=== PATIENT | female | born 1960 | race Caucasian/White ===

== ENCOUNTER → 2017-01-09 | Outpatient (CLI) | payer OTHER ==
[~2017-01-09] VITALS: Ht 154.9 cm; Wt 68.6 kg
[~2017-01-09] MED LIST: ACYC200C66 PO; CHLORHEXIDINE GLUCONATE 2 % 1 PACK (2 CLOTHS) TOPICAL PRN; DULO1CAP3 PO; INSULIN HUMAN REGULAR 1,000 UNITS/10 ML VIAL SQ PRN; LACTATED RINGER'S 1000 ML IV PRN; METOPROLOL TARTRATE 25 MG TAB PO PRN; MIDAZOLAM HCL 2 MG/2 ML VIAL IV ONE; MS C30TA5 PO; OXYC1CAP PO; POVIDONE IODINE 5% (ANTISEPSIS KIT) 4 APPLICATIONS EACH NARE PRN; PROPOFOL 200 MG/20 ML AMP IV ONE; RANI150T PO; SODIUM CHLORID 0.9% 500 ML IV PRN
--- NOTE | 2017-01-09 12:04 | PD.PROCEDR ---
GI Procedure PROCEDURE PERFORMED Endoscopic ultrasound INDICATION FOR PROCEDURE Dilated common bile duct PROCEDURE: The procedure, risks and benefits were discussed with Ms. Cheema and informed consent was obtained. Anesthesia sedated her with Diprivan. She was placed in the left lateral decubitus position. Endoscopic ultrasound: The Pentax videoscope was introduced through the oropharynx and advanced to the second portion of the duodenum under direct visualization. FINDINGS: The pancreatic parenchyma appeared to be unremarkable from head to tail Pancreatic duct was within normal limits it measured 1.1 mm Bile duct was also within normal limits it was not noted to be dilated and is appropriate for her age with no filling defects in the bile duct was 4-5mm Normal ampulla No lymphadenopathy ESTIMATED BLOOD LOSS: None SPECIMENS REMOVED: None COMPLICATIONS: None IMPRESSION: Normal endoscopic ultrasound PLAN: Follow-up in clinic in 3 weeks Semaj Hansen MD Jan 09, 2017 12:04
[2017-01-09 12:29] VITALS: BP 95/69; PULSE 62; RESP 16; TEMP 97.1; O2SAT 97
--- NOTE | 2017-01-09 17:02 | EKG ---
Date Performed: 01/09/2017 Time Performed: 09:28:20 PTAGE: 56 years EKG: Sinus rhythm NORMAL ECG NO PREVIOUS TRACING DOCTOR: Gertrude Sanders Interpretating Date/Time 01/09/2017 17:01:40
== END ==
LOC: HEND 08:46
PROVIDERS: ATTEND Internal Medicine Gastroenterology
DX: K83.8 Other specified diseases of biliary tract (principal); Z01.810 Encounter for preprocedural cardiovascular examination
CPT/HCPCS: 00740; 43259; 93005; J2250; J3010; J7120